=== PATIENT | male | born 1965 | race Hispanic/Latino ===

== ENCOUNTER 2020-10-16 08:18 | Day surgery (SDC) | payer OTHER ==
[2020-10-14 09:25] LABS: BASOPHILS % (AUTO) 1.2 % (0.0-5.0); HEMATOCRIT 43.9 % (42-54); LYMPHOCYTES % (AUTO) 31.4 % (21.0-51.0); MEAN CORPUSCULAR HEMOGLOBIN 30.8 pg (27.0-33.0); MEAN CORPUSCULAR HGB CONC 34.6 g/dL (32.0-36.0); MONOCYTES % (AUTO) 6.7 % (3.0-13.0); NEUTROPHILS % (AUTO) 56.2 % (40.0-77.0); PLATELET COUNT (AUTO) 203 K/uL (130-400); RED BLOOD CELL COUNT(AUTO) 4.93 MIL/uL (4.50-6.20); RED CELL DISTRIBUTION WIDTH 12.8 % (11.0-15.5); WHITE BLOOD COUNT (AUTO) 4.2 K/uL (4.8-10.8)
[2020-10-14 09:39] LABS: BILIRUBIN,TOTAL 0.4 mg/dL (0.2-1.0); CREATININE 0.9 mg/dL (0.5-1.5); POTASSIUM 3.8 mmol/L (3.5-5.1); TOTAL PROTEIN, SERUM 6.9 g/dL (6.0-8.3)
[2020-10-15 11:38] VITALS: BP 162/86
[~2020-10-16] VITALS: Ht 177.8 cm; Wt 86.7 kg
[2020-10-16] VITALS (18 sets, daily range): BP systolic 130–165; BP diastolic 56–95
[~2020-10-16 08:18] MED LIST: CYAN250014 PO; IBUP-2784 PO; TEST1T TD
[2020-10-16] MEDS ORDERED: LACTATED RINGERS 1000ML 1,000 ML IV ONE (09:22)
[2020-10-16] MEDS: CEFAZOLIN SODIUM 1 GM VIAL ONE ×2 (09:37→13:45)
[2020-10-16] MEDS ORDERED: LIDOCAINE PF 100MG/5ML (2%) SYRINGE 5ML ONE (13:22)
[2020-10-16] MEDS ORDERED: SUCCINYLCHOLINE 200MG/10ML SYR ONE (13:22)
[2020-10-16] MEDS ORDERED: ROCURONIUM 10MG/1ML SYR 10 MG/ML ML ONE (13:26)
[2020-10-16] MEDS ORDERED: PROPOFOL 10 MG/ML 20ML VIAL IV ONE (13:26)
[2020-10-16] MEDS ORDERED: FENTANYL CITRATE PF 50 MCG/1 ML 5ML AMP IV ONE (13:26)
[2020-10-16] MEDS ORDERED: BUPIVACAINE/PF 0.5% 30ML VIAL ONE (13:48)
[2020-10-16] MEDS ORDERED: EPHEDRINE SULFATE 50 MG/ML AMPULE ONE (13:57)
[2020-10-16] MEDS ORDERED: GLYCOPYRROLATE 1 MG/5 ML SYRINGE ONE (14:31)
[2020-10-16] MEDS ORDERED: ONDANSETRON 4MG INJ ONE (14:31)
[2020-10-16] MEDS ORDERED: NEOSTIGMINE 5MG/5ML SYR IV ONE (14:31)
[2020-10-16] MEDS ORDERED: MEPERIDINE-PF 25 MG/ML SYG ONE ×2 (15:16→15:25)
[2020-10-16] MEDS ORDERED: SIMETHICONE 80 MG TAB.CHEW ONE (16:25)
== END 2020-10-16 17:15 | disposition home or self-care (01) ==
LOC: DAH 08:18
PROVIDERS: ATTEND Surgery
DX: K80.12 Calculus of gallbladder with acute and chronic cholecystitis without obstruction (principal); H40.9 Unspecified glaucoma; K21.9 Gastro-esophageal reflux disease without esophagitis; Z79.899 Other long term (current) drug therapy
CPT/HCPCS: 47562; S2900; 36415; 80053; 85025; 87635; C9803; J0330; J0690; J2001; J2175; J2405; J2704; J2710; J3010; J3490; J7030; J7120